=== PATIENT | female | born 1960 | race Caucasian/White ===

== ENCOUNTER → 2018-10-06 12:47 | Outpatient (CLI) | payer OTHER, SELFPAY | PROVIDERS: Visit Provider Student in an Organized Health Care Education/Training Program | DX: M85.852 Other specified disorders of bone density and structure, left thigh (principal); Z78.0 Asymptomatic menopausal state; F17.200 Nicotine dependence, unspecified, uncomplicated | CPT/HCPCS: 77080 ==